=== PATIENT | male | born 1985 | race Two or more races ===

== ENCOUNTER 2016-08-22 00:03 | Emergency (ER) | payer OTHER ==
--- NOTE | 2016-08-22 05:15 | ER Document Report ---
ED General - General Chief Complaint: Swelling Stated Complaint: BOIL Notes: Patient is a 31-year-old male presents with complaint of feeling a small area over his neck. This over the central part of his neck over his thigh work when. He says he first noticed it 1 day ago. He denies any fevers. No vomiting. No difficulty swallowing or breathing. No leukocytosis time. No previous history of any thyroid masses or problems. Denies any chronic medical problems. TRAVEL OUTSIDE OF THE [place] IN LAST 30 DAYS: No - Related Data Allergies/Adverse Reactions: No Known Allergies Allergy (Unverified 08/22/16 00:23) Past Medical History - Social History Smoking Status: Never Smoker Chew tobacco use (# tins/day): No Frequency of alcohol use: Rare Drug Abuse: None Family History: Reviewed & Not Pertinent Patient has suicidal ideation: No Patient has homicidal ideation: No Renal/ Medical History: Denies: Hx Peritoneal Dialysis Review of Systems - Review of Systems Notes: My Normal Review Basic REVIEW OF SYSTEMS: CONSTITUTIONAL : Denies fever, chills, or sweats. Denies recent illness. EENT: Mass of her thyroid. CARDIOVASCULAR: Denies chest pain. RESPIRATORY: Denies cough, cold, or chest congestion. Denies shortness of breath, difficulty breathing, or wheezing. GASTROINTESTINAL: Denies abdominal pain. Denies nausea, vomiting, or diarrhea. Denies constipation. Last BM: MUSCULOSKELETAL: Denies neck or back pain or joint pain or swelling. SKIN: Denies rash or skin lesions. NEUROLOGICAL: Denies altered mental status or loss of consciousness. Denies headache. Denies weakness or paralysis or loss of use of either side. Denies problems with gait or speech. Denies sensory or motor loss. ALL OTHER SYSTEMS REVIEWED AND NEGATIVE. Physical Exam - Vital signs Vitals: Temp Pulse Resp BP Pulse Ox 98.3 F 52 L 18 121/55 L 98 08/22/16 00:12 08/22/16 00:12 08/22/16 00:12 08/22/16 00:12 08/22/16 00:12 - Notes Notes: General Appearance: Well nourished, alert, cooperative, no acute distress, no obvious discomfort. Well-appearing. Vitals: reviewed, See vital signs table. Head: no swelling or tenderness to the head Eyes: PERRL, EOMI, Conjuctiva clear Mouth: No decreasd moisture Throat: No tonsillar inflammation, No airway obstruction, No lymphadenopathy Neck: Patient has a small swollen area directly over the thyroid periods consistent with a cyst of the thyroid. No redness or swelling of the skin over the area. Lungs: No wheezing, No rales, No rhonci, No accessory muscle use, good air exchange bilaterally. Heart: Normal rate, Regular rythm, No murmur, no rub Extremities: strength 5/5 in all extremities, good pulses in all extremities, no swelling or tenderness in the extremities, no edema. Skin: warm, dry, appropriate color, no rash Neuro: speech clear, oriented x 3, normal affect, responds appropriately to questions. Course - Vital Signs Vital signs: Temp Pulse Resp BP Pulse Ox 98.3 F 52 L 18 121/55 L 98 08/22/16 00:12 08/22/16 00:12 08/22/16 00:12 08/22/16 00:12 08/22/16 00:12 - Transfer of Care Notes: 08/22/16 05:51 Patient will be discharged home. He has a cyst on the thyroid. This midline suggesting it probably is a thyroglossal duct cyst, however, this would be a little abnormal for his age but can still occur. Informed him the importance of following up with the ENT clinic so that they can evaluate him and possibly do a biopsy for further evaluation. Currently there is no signs of infection. This no redness or swelling. No fevers. I informed him if he develops any of those symptoms that he must return to ER immediately. Patient agrees with plan and will be discharged home. Dictation of this chart was performed using voice recognition software; therefore, there may be some unintended grammatical errors. Discharge - Discharge Clinical Impression: Thyroid cyst Condition: Good Disposition: HOME, SELF-CARE Additional Instructions: Please follow up with the ENT clinic for reevaluation of your Thyroid cyst. They may do a biosy to further evaluate it. It is very important that you make this follow up appointment. The number for the clinic is under Dr. Little on your discharge paperwork. Please return to the ER immediately if you have increase in size of the cyst, fevers, redness of the skin over the cyst, or any signs of infection. Forms: Return to Work Referrals: DENNY LITTLE MD [JOCELYN CHAVEZ] - 08/25/16
[2016-08-22 05:21] LABS: THYROID STIMULATING HORMONE 4.45 uIU/mL (0.47-4.68)
[2016-08-22 05:54] VITALS: BP 122/88
== END 2016-08-22 05:52 | disposition home or self-care (01) ==
LOC: ER 00:03
DX: E04.1 Nontoxic single thyroid nodule (principal)
CPT/HCPCS: 36415; 76536; 84439; 84443; 99283